=== PATIENT | female | born 1965 | race Caucasian/White ===

== ENCOUNTER 2024-05-27 13:31 | Emergency (ER) | payer OTHER ==
[2024-05-27 13:42] VITALS: BP 116/65; PULSE 63; RESP 16; TEMP 98.3; BMI 35.2
[2024-05-27] MEDS ORDERED: ACETAMINOPHEN 500 MG TABLET (FP) ONE (15:29)
[2024-05-27] MEDS: ACETAMINOPHEN 500 MG TABLET (FP) PO ONE (15:34)
== END 2024-05-27 18:29 | disposition home or self-care (01) ==
LOC: JERFT 13:31
DX: S09.90XA Unspecified injury of head, initial encounter (principal); M25.561 Pain in right knee; W01.198A Fall on same level from slipping, tripping and stumbling with subsequent striking against other object, initial encounter; Y93.01 Activity, walking, marching and hiking; Y99.0 Civilian activity done for income or pay
CPT/HCPCS: 70450-TC; 73562-TC-RT-FY; 99284-25